=== PATIENT | male | born 1980 | race Caucasian/White ===

== ENCOUNTER 2017-12-04 08:10 | Emergency (ER) | payer MEDICAID ==
[~2017-12-04] VITALS: Ht 177.8 cm; Wt 80.0 kg
[~2017-12-04 08:10] MED LIST: ALBU17I INH; ALBU6.7H INH; FLUO20SO3 PO; WELL200T PO
[2017-12-04 08:19] VITALS: BP 131/83; PULSE 78; RESP 16; TEMP 97.9; O2SAT 100
[2017-12-04] MEDS ORDERED: ALBU6.7H INH (08:43)
--- NOTE | 2017-12-04 08:48 | RADRPT ---
EXAM DATE/TIME: 12/04/2017 08:34 [place] COMPARISON: No previous studies available for comparison. INDICATIONS : Fall, right 4th- 5th metacarpal pain. MEDICAL HISTORY : None. SURGICAL HISTORY : None. ENCOUNTER: Initial ACUITY: 1 day PAIN SCORE: 4/10 LOCATION: Right 4th-5th metacarpal FINDINGS: Fracture distal fifth metacarpal with minimal palmar angulation. Fourth metacarpal and carpus intact . CONCLUSION: Nondisplaced fracture distal fifth metacarpal (boxer's fracture) Raúl Rebollar MD FACR on December 04, 2017 at 8:45 Board Certified Radiologist. This report was verified electronically.
--- NOTE | 2017-12-04 08:53 | PD ---
HPI Chief Complaint: Injury Time Seen by Provider: 08:31 Travel History International Travel<30 days: No Contact w/Intl Traveler<30days: No Traveled to known affect area: No History of Present Illness HPI This 37-year-old male on the hand. He has been having pain in the hand since. He is generally healthy. He has a history of asthma for which he uses as needed albuterol. He is having pain in the hand which is aggravated by any movement. Pain is moderate PFSH Past Medical History Asthma: Yes Bipolar Disorder: Yes Diabetes: No Diminished Hearing: No Musculoskeletal: Yes (PAST HX FRACTURED RIGHT ARM) Past Surgical History Oral Surgery: Yes (NASAL SURGGERY 1998) Other Surgery: Yes (SINUS SURGERY) Social History Alcohol Use: No Tobacco Use: No Substance Use: No Allergies-Medications (Allergen,Severity, Reaction): Coded Allergies: penicillin G (Unverified Allergy, Unknown, Rash, 12/04/17) Reported Meds & Prescriptions Reported Meds & Active Scripts Active Reported Proventil Hfa 6.7 GM Inh (Albuterol Sulfate) 90 Mcg/Act Aer 1 Puff INH Q4H PRN Review of Systems Except as stated in HPI: all other systems reviewed are Neg General / Constitutional: No: Fever, Chills Eyes: No: Diploplia, Blurred Vision HENT: No: Headaches Cardiovascular: No: Chest Pain or Discomfort Physical Exam Narrative Well-developed male SKIN: Focused skin assessment warm/dry. HEAD: Atraumatic. Normocephalic. EYES: Pupils equal and round. No scleral icterus. No injection or drainage. ENT: No nasal bleeding or discharge. Mucous membranes pink and moist. NECK: Trachea midline. No JVD. MUSCULOSKELETAL: No obvious deformities. No clubbing. No cyanosis. No edema. There is swelling and tenderness on the ulnar side of the right hand. The skin is intact. NEUROLOGICAL: Awake and alert. No obvious cranial nerve deficits. Motor grossly within normal limits. Normal speech. PSYCHIATRIC: Appropriate mood and affect; insight and judgment normal. Data Data Last Documented VS Vital Signs Date Time Temp Pulse Resp B/P (MAP) Pulse Ox O2 Delivery O2 Flow Rate FiO2 12/04/17 08:19 97.9 78 16 131/83 (99) 100 Orders Orders Hand, Complete ([id number]) (12/04/17 08:31) Splint Or Brace Apply/Monitor (12/04/17 08:57) MDM Medical Decision Making Medical Screen Exam Complete: Yes Emergency Medical Condition: Yes Medical Record Reviewed: Yes Differential Diagnosis Differential includes contusion, fracture Narrative Course X-ray shows a fracture of the neck of the fifth metacarpal Diagnosis Primary Impression: Fracture of fifth metacarpal bone Additional Instructions: Keep hand elevated, use ice as needed, follow-up with orthopedic Disposition: 01 DISCHARGE HOME Condition: Stable Eyal Walker MD December 04, 2017 08:53
== END 2017-12-04 09:19 | disposition home or self-care (01) ==
LOC: PHED 08:10
DX: S62.366A Nondisplaced fracture of neck of fifth metacarpal bone, right hand, initial encounter for closed fracture (principal); X58.XXXA Exposure to other specified factors, initial encounter; J45.909 Unspecified asthma, uncomplicated; F31.9 Bipolar disorder, unspecified
CPT/HCPCS: 29125; 73130